=== PATIENT | female | born 1945 | race Native Hawaiian/Other Pacific Islander ===

== ENCOUNTER 2016-09-08 07:41 | Outpatient (CLI) | payer OTHER ==
[2016-09-08 07:55] LABS: PLATELET COUNT 253 K/uL (152-353)
[2016-09-08 08:31] LABS: POTASSIUM 3.8 mmol/L (3.6-5.2); SODIUM 137 mmol/L (136-145)
== END 2016-09-08 19:05 | disposition home or self-care (01) ==
LOC: LABW 07:41
PROVIDERS: Nurse Practitioner
DX: K21.9 Gastro-esophageal reflux disease without esophagitis (principal); R53.83 Other fatigue; I10 Essential (primary) hypertension; Z79.899 Other long term (current) drug therapy; M17.0 Bilateral primary osteoarthritis of knee
CPT/HCPCS: 36415; 80053; 80061; 84443; 85027

== ENCOUNTER 2017-05-30 09:25 | Outpatient (CLI) | payer OTHER | END 2017-05-30 11:00 | disposition home or self-care (01) | LOC: MAMMO 09:25 | DX: Z12.31 Encounter for screening mammogram for malignant neoplasm of breast (principal) ==

== ENCOUNTER 2018-11-01 10:05 | Outpatient (CLI) | payer OTHER ==
[2018-11-01 10:25] LABS: PLATELET COUNT 288 K/uL (152-353)
[2018-11-01 10:59] LABS: POTASSIUM 4.3 mmol/L (3.6-5.2)
== END 2018-11-01 19:12 | disposition home or self-care (01) ==
LOC: LABW 10:05
PROVIDERS: Nurse Practitioner
DX: R53.83 Other fatigue (principal); I10 Essential (primary) hypertension; E78.00 Pure hypercholesterolemia, unspecified
CPT/HCPCS: 36415; 80053; 80061; 84443; 85027

== ENCOUNTER 2018-12-11 08:40 | Outpatient (CLI) | payer OTHER | END 2018-12-11 23:13 | disposition home or self-care (01) | LOC: MAMMO 08:40 | DX: Z12.31 Encounter for screening mammogram for malignant neoplasm of breast (principal) ==

== ENCOUNTER 2019-02-21 07:52 | Outpatient (CLI) | payer OTHER | END 2019-02-21 23:43 | disposition home or self-care (01) | LOC: NM 07:52 | DX: Z01.818 Encounter for other preprocedural examination (principal); R06.02 Shortness of breath; R07.89 Other chest pain | CPT/HCPCS: A9500; J2785 ==

== ENCOUNTER 2020-02-07 07:51 | Outpatient (CLI) | payer OTHER | END 2020-02-07 23:00 | disposition home or self-care (01) | LOC: RAD 07:51 | DX: I48.91 Unspecified atrial fibrillation (principal) ==

== ENCOUNTER 2020-03-11 10:53 | Outpatient (CLI) | payer OTHER | END 2020-03-11 19:50 | disposition home or self-care (01) | LOC: MAMMO 10:53 | DX: Z12.31 Encounter for screening mammogram for malignant neoplasm of breast (principal) ==

== ENCOUNTER 2021-06-24 08:20 | Outpatient (CLI) | payer OTHER | END 2021-06-24 20:00 | disposition home or self-care (01) | LOC: MAMMO 08:20 | PROVIDERS: ATTEND Obstetrics & Gynecology | DX: Z12.31 Encounter for screening mammogram for malignant neoplasm of breast (principal) ==

== ENCOUNTER 2022-07-27 10:35 | Outpatient (CLI) | payer OTHER | END 2022-07-27 19:03 | disposition home or self-care (01) | LOC: MAMMO 10:35 | PROVIDERS: ATTEND Registered Nurse | DX: Z12.31 Encounter for screening mammogram for malignant neoplasm of breast (principal) ==